=== PATIENT | female | born 1985 | race American Indian/Alaskan Native ===

== ENCOUNTER 2020-02-19 14:55 | Observation (INO) | payer MEDICAID ==
[2020-02-19] MEDS ORDERED: NITROGLYCERIN 0.4 MG TAB SUBL SL ONE (15:06)
[2020-02-19] MEDS ORDERED: MORPHINE 4 MG/1 ML INJ IV ONE (15:08)
[2020-02-19 15:54] LABS: Basophils % (Auto) 0.4 % (0.0-1.8); Eosinophils % (Auto) 0.3 % (0.0-4.3); Hematocrit 28.8 % (30.3-42.9); Hemoglobin 9.5 gm/dl (10.1-14.3); Lymphocytes # (Auto) 1.3 K/mm3 (1.2-5.4); Lymphocytes % (Auto) 14.4 % (13.4-35.0); Mean Corpuscular HGB Conc 33 % (30-34); Mean Corpuscular Volume 85 fl (79-97); Monocytes # (Auto) 0.5 K/mm3 (0.0-0.8); Monocytes % (Auto) 5.1 % (0.0-7.3); Platelet Count 429 K/mm3 (140-440); Red Cell Distribution Width 18.2 % (13.2-15.2)
[2020-02-19] MEDS ORDERED: NITROGLYCERIN 2% OINT 1 GM TP ONE (15:54)
[2020-02-19] MEDS ORDERED: fentaNYL 100 MCG/2 ML INJ IV ONE (15:55)
[2020-02-19 16:00] LABS: Blood Urea Nitrogen 13 mg/dL (7-17); Calcium 8.9 mg/dL (8.4-10.2); Hemolysis Index 28
[2020-02-19 16:04] LABS: BUN/Creatinine Ratio 19
[2020-02-19 16:14] LABS: Partial Thromboplastin Time 32.6 Sec. (24.2-36.6)
[2020-02-19] MEDS ORDERED: FUROSEMIDE 40 MG/4 ML INJ IV ONE (16:33)
[2020-02-19] MEDS ORDERED: HEPARIN 10,000 UNITS/10 ML VIAL IV ONE (16:33)
--- NOTE | 2020-02-19 16:33 | XRay Report ---
CHEST 1 VIEW 02/19/2020 4:05 PM INDICATION / CLINICAL INFORMATION: chest pain. COMPARISON: None available. FINDINGS: SUPPORT DEVICES: None. HEART / MEDIASTINUM: Moderate cardiomegaly status post previous median sternotomy. LUNGS / PLEURA: Increased interstitial markings bilaterally with more localized consolidation lateral to the right hilum. No pneumothorax. ADDITIONAL FINDINGS: No significant additional findings. IMPRESSION: 1. Moderate cardiomegaly. 2. Suspect atypical pneumonia. Signer Name: Efrem Petty MD Signed: 02/19/2020 4:29 PM Workstation Name: [id number]
[2020-02-19 16:36] LABS: HDL Cholesterol 45 mg/dL (40-59); LDL Cholesterol,Direct 70 mg/dL (50-130)
--- NOTE | 2020-02-19 16:39 | Emergency Department Report ---
ED Chest Pain HPI - General Chief Complaint: Chest Pain Stated Complaint: CHEST PAIN Time Seen by Provider: 02/19/20 15:03 Source: EMS Mode of arrival: Ambulatory Limitations: No Limitations - History of Present Illness Initial Comments: Patient is a 34-year-old F [place] female with a past medical history of coronary artery disease and lupus and congestive heart failure who is presenting with chest pain since earlier this morning. Patient states she was watching TV when this began. States she does have some shortness of breath. Chest pain is been constant throughout the day. Patient has a history of two-vessel CABG she has had a heart attack in the past secondary to her lupus. She denies fevers chills cough cold or congestion. Severity scale (0 -10): 7 Heart Score - HEART Score History: Moderately suspicious EKG: Non-specific Age: < 45 Risk factors: > 3 risk factors or hx of atherosclerotic disease Troponin: > 3x normal limit HEART Score: 6 ED Review of Systems ROS: Stated complaint: CHEST PAIN Other details as noted in HPI Comment: All other systems reviewed and negative ED Past Medical Hx - Past Medical History Previous Medical History?: Yes Hx Hypertension: Yes Hx Heart Attack/AMI: Yes Hx Congestive Heart Failure: Yes Additional medical history: lupus - Surgical History Past Surgical History?: Yes Additional Surgical History: bypass , stints - Social History Smoking Status: Never Smoker Substance Use Type: None ED Physical Exam - General Limitations: No Limitations General appearance: alert, in no apparent distress - Head Head exam: Present: atraumatic, normocephalic - Eye Eye exam: Present: normal appearance - ENT ENT exam: Present: mucous membranes moist - Neck Neck exam: Present: normal inspection - Respiratory Respiratory exam: Present: rales (slight in bilateral bases). Absent: normal lung sounds bilaterally, respiratory distress, wheezes, rhonchi - Cardiovascular Cardiovascular Exam: Present: normal rhythm, tachycardia, normal heart sounds. Absent: systolic murmur, diastolic murmur, rubs, gallop - GI/Abdominal GI/Abdominal exam: Present: soft, normal bowel sounds. Absent: distended, tenderness, guarding, rebound - Extremities Exam Extremities exam: Present: normal inspection - Back Exam Back exam: Present: normal inspection - Neurological Exam Neurological exam: Present: alert, oriented X3 - Psychiatric Psychiatric exam: Present: normal affect, normal mood - Skin Skin exam: Present: warm, dry, intact, normal color. Absent: rash ED Course Vital Signs 02/19/20 02/19/20 02/19/20 15:26 15:51 15:54 Temperature 98.7 F Pulse Rate 101 H 100 H Respiratory 18 18 18 Rate Blood Pressure 133/99 133/99 Blood Pressure 133/99 [Right] O2 Sat by Pulse 100 100 Oximetry 02/19/20 16:24 Temperature Pulse Rate 89 Respiratory 18 Rate Blood Pressure 136/82 Blood Pressure [Right] O2 Sat by Pulse Oximetry RYDER score - Ryder Score Age > 65: (0) No Aspirin use within the Past 7 Days: (1) Yes 3 or more CAD Risk Factors: (1) Yes 2 or more Angina events in past 24 hrs: (1) Yes Known CAD with more than 50% Stenosis: (0) No Elevated Cardiac Markers: (1) Yes ST Deviation Greater than 0.5mm: (0) No RYDER Score: 4 ED Medical Decision Making - Lab Data Result diagrams: 02/19/20 15:25 02/19/20 15:25 Lab Results 02/19/20 02/19/20 02/19/20 Range/Units 15:25 15:25 15:25 WBC 9.0 (4.5-11.0) K/mm3 RBC 3.40 L (3.65-5.03) M/mm3 Hgb 9.5 L (10.1-14.3) gm/dl Hct 28.8 L (30.3-42.9) % MCV 85 (79-97) fl MCH 28 (28-32) pg MCHC 33 (30-34) % RDW 18.2 H (13.2-15.2) % Plt Count 429 (140-440) K/mm3 Lymph % (Auto) 14.4 (13.4-35.0) % Hendry % (Auto) 5.1 (0.0-7.3) % Eos % (Auto) 0.3 (0.0-4.3) % Baso % (Auto) 0.4 (0.0-1.8) % Lymph # (Auto) 1.3 (1.2-5.4) K/mm3 Hendry # (Auto) 0.5 (0.0-0.8) K/mm3 Eos # (Auto) 0.0 (0.0-0.4) K/mm3 Baso # (Auto) 0.0 (0.0-0.1) K/mm3 Seg Neutrophils % 79.8 H (40.0-70.0) % Seg Neutrophils # 7.2 (1.8-7.7) K/mm3 APTT 32.6 (24.2-36.6) Sec. D-Dimer 255.62 H (0-234) ng/mlDDU Sodium 137 (137-145) mmol/L Potassium 4.2 (3.6-5.0) mmol/L Chloride 104.5 (98-107) mmol/L Carbon Dioxide 18 L (22-30) mmol/L Anion Gap 19 mmol/L BUN 13 (7-17) mg/dL Creatinine 0.7 (0.6-1.2) mg/dL Estimated GFR > 60 ml/min BUN/Creatinine Ratio 19 % Glucose 84 (65-100) mg/dL Calcium 8.9 (8.4-10.2) mg/dL Troponin T 0.329 H* (0.00-0.029) ng/mL Triglycerides 80 (2-149) mg/dL Cholesterol 126 (50-199) mg/dL LDL Cholesterol Direct 70 (50-130) mg/dL HDL Cholesterol 45 (40-59) mg/dL Cholesterol/HDL Ratio 2.80 % HCG, Qual (Negative) 02/19/20 Range/Units 15:25 WBC (4.5-11.0) K/mm3 RBC (3.65-5.03) M/mm3 Hgb (10.1-14.3) gm/dl Hct (30.3-42.9) % MCV (79-97) fl MCH (28-32) pg MCHC (30-34) % RDW (13.2-15.2) % Plt Count (140-440) K/mm3 Lymph % (Auto) (13.4-35.0) % Hendry % (Auto) (0.0-7.3) % Eos % (Auto) (0.0-4.3) % Baso % (Auto) (0.0-1.8) % Lymph # (Auto) (1.2-5.4) K/mm3 Hendry # (Auto) (0.0-0.8) K/mm3 Eos # (Auto) (0.0-0.4) K/mm3 Baso # (Auto) (0.0-0.1) K/mm3 Seg Neutrophils % (40.0-70.0) % Seg Neutrophils # (1.8-7.7) K/mm3 APTT (24.2-36.6) Sec. D-Dimer (0-234) ng/mlDDU Sodium (137-145) mmol/L Potassium (3.6-5.0) mmol/L Chloride (98-107) mmol/L Carbon Dioxide (22-30) mmol/L Anion Gap mmol/L BUN (7-17) mg/dL Creatinine (0.6-1.2) mg/dL Estimated GFR ml/min BUN/Creatinine Ratio % Glucose (65-100) mg/dL Calcium (8.4-10.2) mg/dL Troponin T (0.00-0.029) ng/mL Triglycerides (2-149) mg/dL Cholesterol (50-199) mg/dL LDL Cholesterol Direct (50-130) mg/dL HDL Cholesterol (40-59) mg/dL Cholesterol/HDL Ratio % HCG, Qual Negative (Negative) - EKG Data -: EKG Interpreted by Nv - EKG Data 02/19/20 16:39 EKG shows sinus rhythm with a rate of 98. Strat[place] is normal. Intervals are normal. Does appear to be some [address] depressions in V5 and V6. T wave inversions laterally. No ST segment elevation. - Radiology Data Chest x-ray shows cardiomegaly with pulmonary vascular congestion and pulmonary edema - Medical Decision Making Patient is a 34-year-old F [place] female with lupus and coronary disease who is presenting with chest pain. Troponin was elevated. Does appear as though she has pulmonary edema on chest x-ray. Patient started on low intensity heparin drip. Patient pain was controlled after receiving a dose of fentanyl which she says normally helps with her pain. Only minor relief with nitroglycerin. Patient be given Lasix for diuresis and she will be admitted to the hospitalist service with a cardiology consult. Critical Care Time: Yes (30) Critical care attestation.: If time is entered above; I have spent that time in minutes in the direct care of this critically ill patient, excluding procedure time. ED Disposition Clinical Impression: NSTEMI (non-ST elevated myocardial infarction), Acute CHF Disposition: OP ADMIT IP TO THIS HOSP Is pt being admited?: Yes Does the pt Need Aspirin: No Condition: Serious Time of Disposition: 16:44
[2020-02-19] MEDS ORDERED: HEPARIN/ 0.45% NACL DRIP 25,000 UNIT/500 ML BAG IV SCH (17:00)
[2020-02-19 17:15] LABS: Blood Urea Nitrogen 13 mg/dL (7-17); Calcium 8.7 mg/dL (8.4-10.2); Hemolysis Index 3
[2020-02-19 17:19] LABS: BUN/Creatinine Ratio 19
[2020-02-19 18:00] VITALS: BP 123/65
[2020-02-19] MEDS ORDERED: HEPARIN/ 0.45% NACL DRIP 25,000 UNIT/500 ML BAG ONE (20:19)
[2020-02-19] MEDS ORDERED: HYDROmorphone 1 MG/1 ML INJ IV PRN (20:32)
[2020-02-19] MEDS ORDERED: HYDROmorphone 1 MG/1 ML INJ ONE (20:34)
[2020-02-19 21:16] LABS: Amphetamine Screen,Urine Negative; Benzodiazepines Screen,Urine Negative; Cannabinoid Screen,Urine Negative; Cocaine Screen,Urine Negative; Methadone Screen,Urine Negative; Opiate Screen,Urine Negative
== END 2020-02-19 22:00 | disposition left against medical advice (07) ==
LOC: ED 14:55 → 4A 16:44
PROVIDERS: ADMIT Internal Medicine; ATTEND Internal Medicine
DX: I21.4 Non-ST elevation (NSTEMI) myocardial infarction (principal); I11.0 Hypertensive heart disease with heart failure; I50.9 Heart failure, unspecified; I25.10 Atherosclerotic heart disease of native coronary artery without angina pectoris; M32.9 Systemic lupus erythematosus, unspecified; Z95.1 Presence of aortocoronary bypass graft; Z98.890 Other specified postprocedural states; Z79.899 Other long term (current) drug therapy
CPT/HCPCS: 36415; 71045; 80048; 80061; 80307; 83880; 84484; 84703; 85025; 85379; 85730; 93005; 96365; 96366; 96375; 96376; 99291; G0378; J1170; J1644; J1940; J2270; J3010

== ENCOUNTER 2020-09-27 22:18 | Emergency (ER) | payer MEDICAID | END 2020-09-28 02:38 | disposition left against medical advice (07) | LOC: ED 22:18 | DX: R06.00 Dyspnea, unspecified (principal); Z53.21 Procedure and treatment not carried out due to patient leaving prior to being seen by health care provider ==

== ENCOUNTER 2020-10-11 13:03 | Inpatient (IN) | payer MEDICAID ==
--- NOTE | 2020-10-11 13:23 | Emergency Department Report ---
ED Chest Pain HPI - General Chief Complaint: Chest Pain Stated Complaint: CP PUI?: No Time Seen by Provider: 10/11/20 13:21 Source: patient, RN notes reviewed, old records reviewed Mode of arrival: Stretcher Limitations: Physical Limitation - History of Present Illness Initial Comments: The patient is a 35-year-old female. She is not known to myself previously. She has a history of lupus, presumed NSTEMI and coronary artery disease. She presents to the ER today with a complaint of chest pain. The chest pain is left-sided. She also endorses nausea, and shortness of breath. She reports that she was taking care of at [facility] recently, within the past month, had a cardiac catheterization. She is not sure why she had this catheterization. She believes that she had a stent deployed. She is not sure if it is a bare-metal stent, or drug-eluting stent. She takes aspirin and Plavix, and reports compliance with his medications. She is brought to the hospital today by emergency medical services. She has a complaint of chest pain. Prehospital EKG not consistent with STEMI. EMS gave aspirin in the field. Patient immediately brought back to room 3. She is placed on a cardiac cath lab technologist, and we have repeated twelve-lead EKG. At 13: 27 and is suspicious for acute inferior wall STEMI. Code STEMI called overhead at 7 AM, EKG completed, 13: 30 p.m. The EKG is transmitted simultaneously to our ship unloader, Dr. Vanegas. He agrees to take the patient to the cardiac catheterization lab. We are both in agreement to this EKG is suspicious for an acute cardiac injury [facility] physician, Dr. Villalta to admit patient to the medical service. Critical care physician, Dr. Rice, will place the patient in the critical care unit, depending on angiographic findings. The aforementioned ship unloader recommended heparin. Patient given aspirin by EMS. Hold nitroglycerin given concern for inferior wall injury pattern. Defer to inpatient team to follow-up on laboratory studies and x-ray results. Complaint: chest pain -: Sudden Pain Location: left chest Pain Radiation: back Severity: moderate Quality: aching Consistency: constant Improves With: nothing Worsens With: nothing Context: recent immobilization re: nausea, vomting, dyspnea Other Symptoms: denies: fever Treatments Prior to Arrival: aspirin Aspirin use within the Past 7 Days: (1) Yes - Related Data Allergies Allergy/AdvReac Type Severity Reaction Status Date / Time hydrocodone AdvReac Swelling Verified 10/11/20 13:26 shellfish derived AdvReac Swelling Verified 10/11/20 13:26 Heart Score - HEART Score History: Highly suspicious EKG: Significant ST-depression Age: < 45 Risk factors: > 3 risk factors or hx of atherosclerotic disease Troponin: 1-3x normal limit HEART Score: 7 - EKG Read Time Time EKG Completed: : EKG Read Time: 13:27 - Critical Actions Critical Actions: >7 pts:50-65% risk of adverse cardiac event. Early invasive measures ED Review of Systems ROS: Stated complaint: CP Other details as noted in HPI Constitutional: malaise. denies: fever Eyes: denies: eye discharge ENT: denies: epistaxis Respiratory: shortness of breath. denies: cough Cardiovascular: chest pain Gastrointestinal: nausea. denies: hematemesis, melena, hematochezia Neurological: weakness Psychiatric: anxiety ED Past Medical Hx - Past Medical History Hx Hypertension: Yes Hx Heart Attack/AMI: Yes Hx Congestive Heart Failure: Yes Additional medical history: lupus - Surgical History Additional Surgical History: bypass , stints - Social History Smoking Status: Never Smoker Substance Use Type: None ED Physical Exam - General Limitations: Physical Limitation General appearance: alert, anxious, in distress - Head Head exam: Present: atraumatic, normocephalic - Eye Eye exam: Present: normal appearance, EOMI. Absent: nystagmus - ENT ENT exam: Present: normal exam, normal orophraynx, mucous membranes moist, normal external ear exam - Neck Neck exam: Present: normal inspection, full ROM. Absent: tenderness, meningismus - Respiratory Respiratory exam: Present: normal lung sounds bilaterally. Absent: respiratory distress, wheezes, rales, rhonchi, stridor, decreased breath sounds - Cardiovascular Cardiovascular Exam: Present: normal rhythm, tachycardia, normal heart sounds. Absent: bradycardia, irregular rhythm, systolic murmur, diastolic murmur, rubs, gallop - GI/Abdominal GI/Abdominal exam: Present: soft. Absent: distended, tenderness, guarding, rebound, rigid, pulsatile mass - Extremities Exam Extremities exam: Present: normal inspection, full ROM, other (2+ pulses noted in the bilateral upper and lower extremities. There is no palpable cord. negative Homans sign. Muscular compartments are soft. The pelvis is stable.). Absent: pedal edema, calf tenderness - Back Exam Back exam: Present: normal inspection, full ROM. Absent: tenderness, CVA tenderness (R), CVA tenderness (L), paraspinal tenderness, vertebral tenderness - Neurological Exam Neurological exam: Present: alert, other (No facial droop. Tongue midline. Extraocular movements intact bilaterally. Facial sensation intact to light touch in V1, V2, V3 distribution bilaterally. 5 and a 5 strength in 4 extremities. Sensation intact to light touch in 4 extremities.). Absent: motor sensory deficit - Psychiatric Psychiatric exam: Present: anxious - Skin Skin exam: Present: warm, dry, intact, normal color. Absent: rash ED Course Vital Signs 10/11/20 10/11/20 10/11/20 13:19 13:21 13:30 Temperature 97.9 F Pulse Rate 114 H 113 H 112 H Respiratory 28 H 19 18 Rate Blood Pressure 116/85 120/87 O2 Sat by Pulse 100 93 100 Oximetry RYDER score - Ryder Score Age > 65: (0) No Aspirin use within the Past 7 Days: (1) Yes 3 or more CAD Risk Factors: (1) Yes 2 or more Angina events in past 24 hrs: (1) Yes Known CAD with more than 50% Stenosis: (0) No Elevated Cardiac Markers: (1) Yes ST Deviation Greater than 0.5mm: (0) No RYDER Score: 4 ED Medical Decision Making - Lab Data Result diagrams: 10/11/20 14:04 10/11/20 23:33 Vital Signs 10/11/20 13:19 Temperature 97.9 F Pulse Rate 114 H Respiratory 28 H Rate Blood Pressure 116/85 O2 Sat by Pulse 100 Oximetry Vital Signs 10/11/20 13:19 Temperature 97.9 F Pulse Rate 114 H Respiratory 28 H Rate Blood Pressure 116/85 O2 Sat by Pulse 100 Oximetry - EKG Data -: EKG Interpreted by Me - EKG Data Interpretation: acute FL 10/11/20 15:11 EKG today shows a sinus rhythm along with Q waves noted in the inferior leads, ST elevation noted in the inferior leads, rate approximately 115 bpm, with a normal axis, T wave inversions in the lateral leads, poor R wave progression. T wave abnormality aVL. Motion artifact. Not a STEMI. Nonspecific changes when compared to prior EKG. - Medical Decision Making Differential diagnosis, including the not limited to: Acute coronary syndrome, GERD, gastritis, hiatal hernia, pneumonia, pulmonary embolism Assessment and plan: 35-year-old female, with acute chest pain, concerning EKG morphology, reports having had a cardiac catheterization recently at another hospital (have requested her medical records, but they have not been sent over yet, do not have access to old cath report, or recent EKG), with concerning chest pain, known history of positive troponins, and concerning EKG morphology. Emergent activation of the cardiac catheterization lab has been initiated. Post catheterization recommendations are pending. Patient has been accepted to the medical service. We will defer to the inpatient team to follow-up cath report, laboratory studies, radiology studies. Please note that this patient required emergent disposition to the cardiac catheterization lab because of a concern for acute coronary syndrome/STEMI, a time sensitive condition, and therefore, could not remain in the emergency room pending x-ray acquisition, or results of laboratory studies. Critical Care Time: Yes Critical care time in (mins) excluding proc time.: 35 Critical care attestation.: If time is entered above; I have spent that time in minutes in the direct care of this critically ill patient, excluding procedure time. ED Disposition Clinical Impression: Acute coronary syndrome Disposition: 09 OP ADMIT IP TO THIS HOSP Is pt being admited?: Yes Does the pt Need Aspirin: No Condition: Critical
[2020-10-11] MEDS ORDERED: ONDANSETRON 4 MG/2 ML INJ ONE (13:29)
[2020-10-11] MEDS ORDERED: MORPHINE 4 MG/1 ML INJ ONE (13:29)
[2020-10-11] MEDS ORDERED: SODIUM CHLORIDE 0.9% 500 ML 500 ML IV ONE (13:33)
[2020-10-11] MEDS ORDERED: MORPHINE 4 MG/1 ML INJ IV ONE (13:33)
[2020-10-11] MEDS ORDERED: ONDANSETRON 4 MG/2 ML INJ IV ONE (13:33)
[2020-10-11] MEDS ORDERED: HEPARIN 10,000 UNITS/10 ML VIAL IV PRN (13:39)
[2020-10-11] MEDS ORDERED: HEPARIN 10,000 UNITS/10 ML VIAL IV ONE (13:39)
[2020-10-11] MEDS ORDERED: HEPARIN/NS 5000 UNIT/500ML 1,000 ML IR ONE (13:51)
[2020-10-11] MEDS ORDERED: VERAPAMIL 5 MG/2 ML INJ ONE (13:51)
[2020-10-11] MEDS ORDERED: NITROGLYCERIN SYRINGE 3 ML ONE (13:52)
[2020-10-11] MEDS ORDERED: SODIUM CHLORIDE 0.9% 1000 ML 1,000 ML ONE (13:54)
[2020-10-11] MEDS ORDERED: oxyCODONE /ACETAMINOPHEN 5-325MG TAB PO PRN (13:58)
[2020-10-11] MEDS ORDERED: ACETAMINOPHEN 325 MG TAB PO PRN (13:58)
[2020-10-11] MEDS ORDERED: HYDROmorphone 1 MG/1 ML INJ IV PRN (13:58)
[2020-10-11] MEDS: HEPARIN 10,000 UNITS/10 ML VIAL ONE ×4 (13:58→14:43)
--- NOTE | 2020-10-11 13:58 | History and Physical Report ---
History of Present Illness Chief complaint: My chest hurts History of present illness: 35 YO Female with SLE, ME, Diastolic CHF, PVD S/P Bypass and Stent Placement presents to ED for evaluation. Patient reports "my chest is hurting". Patient states that she has experienced pain in her chest over the past 1 day with persistently worsening symptoms over the same timeframe. Patient states that her pain is 10/10, constant, localized to the left chest, associated with nausea and shortness of breath. Of the aforementioned symptoms. The patient was seen and evaluated in the emergency department. All lab and imaging studies reviewed. Patient underwent EKG and was found to have EKG changes consistent with STEMI. A code STEMI was called. Cardiology team was alerted and the patient was taken urgently to the catheterization lab for surgical intervention. Patient denies fever, chills, palpitation, productive cough, skin rash, recent ill contacts, or known exposure to COVID-19. Prior evaluation 02/19/2020 dory delarosa. All medication listed at time of admission has been reconciled. Patient admitted to ICU for further care and postoperative evaluation. Cardiology team consulted. Critical care team consulted. Past History Past Medical History: acute ME, heart failure, other (See HPI) Past Surgical History: CABG, Other (Stent placement) Social history: single Family history: hypertension Medications and Allergies Allergies Allergy/AdvReac Type Severity Reaction Status Date / Time hydrocodone AdvReac Swelling Verified 10/11/20 13:26 shellfish derived AdvReac Swelling Verified 10/11/20 13:26 Active Meds: Active Medications Heparin Sodium (Porcine) (Heparin 10,000 Units/10 Ml Vial) 5,600 unit 40 unit/kg (5600 unit) IV Q6H PRN PRN Reason: Anti-Xa Assay < 0.1 units/ml Sodium Chloride (Nacl 0.9% 500 Ml) 500 mls @ 999 mls/hr IV ONCE ONE Stop: 10/11/20 14:03 Heparin Sodium/Sodium Chloride (Heparin/ 0.45% Nacl-25,000 Unit/500 Ml) 25,000 unit in 500 mls @ 18 mls/hr IV TITRATE ANTHONY; Protocol Review of Systems Constitutional: no weight loss, no weight gain, no chills, no sweats Ears, nose, mouth and throat: no ear pain, no tinnitis, no decreased hearing, no nose pain Cardiovascular: chest pain, no orthopnea, no rapid/irregular heart beat, no edema, no lightheadedness Respiratory: no cough, no excessive sputum Gastrointestinal: no abdominal pain, no diarrhea Genitourinary Female: no pelvic pain, no flank pain, no dysuria, no urgency Rectal: no pain, no incontinence, no bleeding Musculoskeletal: no neck stiffness, no neck pain, no shooting arm pain, no arm numbness/tingling, no low back pain, no leg numbness/tingling Integumentary: no rash, no redness, no sores, no jaundice, no boils Neurological: no head injury, no paralysis, no parathesias, no tingling, no seizures, no syncope, no lack of coordination Psychiatric: no anxiety, no memory loss, no sleep disturbances, no hypersomnia, no suicidal ideation Endocrine: no cold intolerance, no heat intolerance, no excessive thirst, no polyuria, no nocturia, no flushing Hematologic/Lymphatic: no easy bruising, no easy bleeding, no lymphadenopathy, no lymphedema Allergic/Immunologic: no urticaria, no allergic rhinitis, no persistent infections, no anaphylaxis Exam - Constitutional Vitals: Temp Pulse Resp BP Pulse Ox 97.9 F 114 H 28 H 116/85 100 10/11/20 13:19 10/11/20 13:19 10/11/20 13:19 10/11/20 13:19 10/11/20 13:19 General appearance: Present: mild distress - EENT Eyes: Present: PERRL ENT: hearing intact, clear oral mucosa - Neck Neck: Present: supple, normal ROM - Respiratory Respiratory effort: normal Respiratory: bilateral: CTA - Cardiovascular Heart Sounds: Present: S1 & S2. Absent: rub, click - Extremities Extremities: pulses symmetrical, No edema Peripheral Pulses: within normal limits - Abdominal General gastrointestinal: Present: soft, non-tender, non-distended, normal bowel sounds Female genitourinary: Present: normal - Integumentary Integumentary: Present: clear, warm, dry - Musculoskeletal Musculoskeletal: gait normal, strength equal bilaterally - Psychiatric Psychiatric: appropriate mood/affect, intact judgment & insight - Neurologic Neurologic: CNII-XII intact, moves all extremities HEART Score - HEART Score EKG: Significant ST-depression Age: < 45 Risk factors: > 3 risk factors or hx of atherosclerotic disease Troponin: 1-3x normal limit - Critical Actions Critical Actions: >7 pts:50-65% risk of adverse cardiac event. Early invasive measures Results - Labs CBC & Chem 7: 10/11/20 14:04 10/11/20 14:04 Assessment and Plan - Patient Problems (1) STEMI (ST elevation myocardial infarction) Current Visit: Yes Status: Acute Plan to address problem: Cardiology team consulted. Patient admitted to ICU. Patient taken urgently to Respiratory Scientist, surgical intervention as per cardiology team. Anticoagulation as per cardiology team. Further care management as per cardiology team. The high probability of a clinically significant, sudden or life threatening deterioration of the [cardiac, renal, pulmonary] system(s) required my full and direct attention, intervention and personal management. The aggregate critical care time was [65 minutes]. This time is in addition to time spent performing reported procedures but includes the following: [x] Data Review and interpretation [x] Patient assessment and monitoring of vital signs [x] Documentation [x] Medication orders and management (2) Diastolic CHF Current Visit: Yes Status: Acute Qualifiers: Heart failure chronicity: acute on chronic Qualified Code(s): I50.33 - Acute on chronic diastolic (congestive) heart failure Plan to address problem: Strict I's/O, monitor urine output every shift, daily weight, afterload reduction, blood pressure control, cardiology team consulted. (3) Lupus Current Visit: Yes Status: Acute Plan to address problem: Continue medical management, supportive care, outpatient rheumatology follow-up. (4) Angina at rest Current Visit: Yes Status: Acute Plan to address problem: Cardiology team consulted, further care and intervention as per cardiology team. (5) DVT prophylaxis Current Visit: Yes Status: Acute Plan to address problem: SCDs bilateral lower extremities while in bed, anticoagulation as per cardiology team.
[2020-10-11] MEDS: LIDOCAINE (2%) 20 MG/1 ML VIAL 20 ML MDV INFILTRATI ONE ×2 (14:00→14:10)
[2020-10-11] MEDS ORDERED: HEPARIN/ 0.45% NACL DRIP 25,000 UNIT/500 ML BAG IV SCH (14:00)
[2020-10-11] MEDS: fentaNYL 100 MCG/2 ML INJ ONE ×2 (14:04→14:10)
[2020-10-11] MEDS: MIDAZOLAM 2 MG/2 ML INJ ONE ×2 (14:05→14:10)
[2020-10-11] MEDS ORDERED: diphenhydrAMINE 50 MG/ML VIAL ONE (14:07)
[2020-10-11] MEDS ORDERED: methylPREDNISolone Sod Succinate 125 MG/2 ML INJ ONE (14:08)
[2020-10-11 14:20] LABS: Basophils % (Auto) 0.3 % (0.0-1.8); Eosinophils % (Auto) 0.1 % (0.0-4.3); Hematocrit 22.1 % (30.3-42.9); Hemoglobin 6.9 gm/dl (10.1-14.3); Lymphocytes % (Auto) 5.8 % (13.4-35.0); Mean Corpuscular HGB Conc 31 % (30-34); Mean Corpuscular Volume 84 fl (79-97); Monocytes # (Auto) 0.6 K/mm3 (0.0-0.8); Monocytes % (Auto) 3.8 % (0.0-7.3); Platelet Count 466 K/mm3 (140-440); Red Blood Count 2.64 M/mm3 (3.65-5.03); Red Cell Distribution Width 17.8 % (13.2-15.2)
[2020-10-11 14:30] LABS: INR 1.21 (0.87-1.13)
[2020-10-11] MEDS ORDERED: NITROGLYCERIN SYRINGE 6 ML ONE (14:31)
[2020-10-11] MEDS ORDERED: TIROFIBAN/NS 12,500 MCG/250 ML BAG IV ONE (14:33)
[2020-10-11 14:38] LABS: Alanine Aminotransferase 10 units/L (7-56); Albumin 3.2 g/dL (3.9-5); BUN/Creatinine Ratio 18; Blood Urea Nitrogen 16 mg/dL (7-17); Calcium 8.3 mg/dL (8.4-10.2); Hemolysis Index 1
[2020-10-11] MEDS: TICAGRELOR 90 MG TAB ONE ×2 (14:53→14:55)
[2020-10-11] MEDS: ALUM-MAG HYDROXIDE-SIMETHICONE 200-200-20MG/5ML ORAL LIQD 30 ML ONE ×2 (14:53→14:55)
[2020-10-11] MEDS ORDERED: HYDROcodone/ACETAMINOPHEN 5-325 MG TAB PO PRN (15:10)
--- NOTE | 2020-10-11 15:27 | Consultation ---
History of Present Illness Consult date: 10/11/20 Consult reason: chest pain History of present illness: 35-year-old woman who presented to the emergency room with chest pain. ECG showed inferior ST elevation, suggestive of an acute STEMI. STEMI protocol was activated. On further evaluation, the patient states that she had two-vessel coronary bypass at [facility] 3 years ago. More recently, 3 weeks ago she states that she underwent cardiac catheterization and an interventional procedure. The details of the bypass and the recent invasive procedure were not readily available, and due to time constraints of STEMI protocol, we decided to continue to emergency cardiac catheterization pending full information regarding her previous cardiac interventions. The patient states that she has been fully compliant with aspirin and Plavix therapy. At cardiac catheterization, we did not find a lesion corresponding to the acute inferior pattern seen on the EKG. The campo right coronary artery was occluded, but the saphenous vein graft to the distal right was patent with only a 50% stenosis in the distal third of the graft. The campo circumflex artery was also occluded, but this appeared to be a chronic total occlusion, a stent was visible in small terminal obtuse marginal, which was felt by faint collaterals from the right coronary system. The left main was free of significant disease, as well as the proximal LAD. The mid LAD was notable for a greater than 99% stenosis at the origin of a large bifurcating mid diagonal branch. As a result of this stenosis, there was only RYDER II antegrade flow into the diagonal branch and its large subbranch. This diagonal branch did not have a functional bypass. An additional saphenous vein graft to the left coronary system was occluded at its origin. With regards to the LAD, it was of small caliber beyond the mid diagonal branch, contained a long segment of diffuse severe disease, chronically totally occluded with diffuse atrophy, with faint collateralization of the apical segments from the right coronary artery. There was a severe dilated cardiomyopathy with ejection fraction less than 15 to 20%, complete akinesis of the mid to distal anterior wall and apex, the perfusion territory of the LAD. After review, we felt the patient's current angina was likely due to ischemia within the large bifurcating mid diagonal branch which subtended most of the lateral wall of the ventricle. Coronary intervention was performed successfully with implantation of a 3.0 mm drug-eluting stent, directed from the LAD into the large diagonal branch, and restoring RYDER-3 flow. Patient's chest pain was relieved following the interventional procedure. She is admitted for post UT intervention, on Aggrastat for 18 hours, and long- term management with baby aspirin and Brilinta for dual oral antiplatelets. I have also recommended aggressive risk factor modification including immediate smoking cessation and 80 mg of atorvastatin daily. Past History Past Medical History: CAD, other (Tobacco abuse) Past Surgical History: CABG, PTCA Medications and Allergies Allergies Allergy/AdvReac Type Severity Reaction Status Date / Time hydrocodone AdvReac Swelling Verified 10/11/20 13:26 shellfish derived AdvReac Swelling Verified 10/11/20 13:26 Active Meds: Active Medications Acetaminophen (Acetaminophen 325 Mg Tab) 650 mg PO Q6H PRN PRN Reason: Pain MILD(1-3)/Fever >100.5/NOBLES Hydrocodone Bitart/Acetaminophen (Hydrocodone/Acetaminophen 5-325 Mg Tab) 1 each PO Q6H PRN PRN Reason: Pain, Moderate (4-6) Aspirin (Aspirin Ec 81 Mg Tab) 81 mg PO QDAY ANTHONY Atorvastatin Calcium (Atorvastatin 40 Mg Tab) 80 mg PO QHS ANTHONY Hydromorphone HCl (Hydromorphone 1 Mg/1 Ml Inj) 0.5 mg IV Q12H PRN PRN Reason: Pain , Severe (7-10) Sodium Chloride (Nacl 0.9% 1000 Ml) 1,000 mls @ 42 mls/hr IV DIRECT ANTHONY Stop: 10/12/20 03:14 Tirofiban/Sodium Chloride (Aggrastat Drip (12.5 Mg/250 Ml)) 12,500 mcg in 250 mls @ 0 mls/hr IV DIRECT ANTHONY; Protocol Stop: 10/12/20 09:59 Lisinopril (Lisinopril 5 Mg Tab) 2.5 mg PO QDAY ANTHONY Metoprolol Tartrate (Metoprolol Tartrate 25 Mg Tab) 25 mg PO Q8H ANTHONY Oxycodone/Acetaminophen (Oxycodone /Acetaminophen 5-325mg Tab) 1 tab PO Q12H PRN PRN Reason: Pain, Moderate (4-6) Pantoprazole Sodium (Pantoprazole 40 Mg Tab) 40 mg PO QDAC ANTHONY Sodium Chloride (Sodium Chloride 0.9% 10 Ml Flush Syringe) 10 ml IV BID ANTHONY Sodium Chloride (Sodium Chloride 0.9% 10 Ml Flush Syringe) 10 ml IV PRN PRN PRN Reason: LINE FLUSH Ticagrelor (Ticagrelor 90 Mg Tab) 90 mg PO BID ANTHONY Review of Systems Cardiovascular: chest pain, shortness of breath, no orthopnea, no palpitations, no rapid/irregular heart beat, no edema, no syncope, no lightheadedness Physical Examination Vital Signs Temp Pulse Resp BP Pulse Ox 97.9 F 114 H 28 H 116/85 100 10/11/20 13:19 10/11/20 13:19 10/11/20 13:19 10/11/20 13:19 10/11/20 13:19 General appearance: mild distress HEENT: Positive: PERRL Neck: Positive: neck supple Cardiac: Positive: Reg Rate and Rhythm Lungs: Positive: Decreased Breath Sounds Neuro: Positive: Grossly Intact Abdomen: Positive: Soft Female genitourinary: deferred Skin: Positive: Clear Extremities: Absent: edema Results 10/11/20 14:04 10/11/20 14:04 Cardiac Enzymes 10/11/20 Range/Units 14:04 AST 18 (5-40) units/L Coagulation 10/11/20 Range/Units 14:04 PT 15.8 H (12.2-14.9) Sec. INR 1.21 H (0.87-1.13) APTT 222.0 H* (24.2-36.6) Sec. CBC 10/11/20 Range/Units 14:04 WBC 16.6 H (4.5-11.0) K/mm3 RBC 2.64 L (3.65-5.03) M/mm3 Hgb 6.9 L (10.1-14.3) gm/dl Hct 22.1 L (30.3-42.9) % Plt Count 466 H (140-440) K/mm3 Lymph # (Auto) 1.0 L (1.2-5.4) K/mm3 [place] # (Auto) 0.6 (0.0-0.8) K/mm3 Eos # (Auto) 0.0 (0.0-0.4) K/mm3 Baso # (Auto) 0.0 (0.0-0.1) K/mm3 Comprehensive Metabolic Panel 10/11/20 Range/Units 14:04 Sodium 138 (137-145) mmol/L Potassium 4.1 (3.6-5.0) mmol/L Chloride 109.8 H (98-107) mmol/L Carbon Dioxide 13 L (22-30) mmol/L BUN 16 (7-17) mg/dL Creatinine 0.9 (0.6-1.2) mg/dL Glucose 175 H (65-100) mg/dL Calcium 8.3 L (8.4-10.2) mg/dL AST 18 (5-40) units/L ALT 10 (7-56) units/L Alkaline Phosphatase 93 (35-129) units/L Albumin 3.2 L (3.9-5) g/dL EKG interpretations - Telemetry EKG Rhythm: Sinus Rhythm (With acute inferior ST elevation) Assessment and Plan - Patient Problems (1) Acute coronary syndrome Current Visit: Yes Status: Acute Plan to address problem: Patient presented with chest pain and acute inferior ST elevation on the EKG, cardiac catheterization findings as described above, followed by coronary intervention to the mid LAD intended to perfuse a large bifurcating mid diagonal branch. Procedure well-tolerated, patient admitted to the CCU for post UT supportive care.
[2020-10-11] MEDS ORDERED: HEPARIN 10,000 UNITS/10 ML VIAL ONE (15:57)
[2020-10-11] MEDS ORDERED: METOPROLOL TARTRATE 25 MG TAB PO SCH (16:00)
[2020-10-11] MEDS ORDERED: TIROFIBAN/NS 12,500 MCG/250 ML BAG IV SCH (16:00)
[2020-10-11] MEDS ORDERED: PANTOPRAZOLE 40 MG TAB PO SCH (16:00)
--- NOTE | 2020-10-11 16:00 | Cardiac Catherization Report ---
DATE OF SERVICE: 10/11/2020 CARDIAC CATHETERIZATION AND CORONARY ANGIOPLASTY REPORT The patient is a 35-year-old woman who presented to the Emergency Room this afternoon with chest pain. There was marked chest pain with shortness of breath. ECG showed ST elevation in the inferior wall, suggestive of an acute STEMI. STEMI protocol was activated. On further questioning of the patient, she had been hospitalized 3 weeks ago at [facility] in [facility], states that she underwent a stent procedure at the time and has been fully compliant with her dual oral antiplatelet therapy with Plavix. She also incidentally has had 2-vessel coronary bypass done 3 years ago. We made attempts to obtain the bypass information as well as the information from her recent angiography and interventional procedure, but this could not be obtained in an expeditious manner. Given the time constraints of the STEMI protocol, the patient was then taken emergently to the cardiac catheterization laboratory. PROCEDURES PERFORMED: 1. Left heart catheterization. 2. Selective left and right coronary angiography. 3. Left ventricular angiography. 4. Angiography of the left internal mammary artery. 5. Angiography of the saphenous vein grafts. 6. Coronary angioplasty and stenting of the mid LAD, to perfuse a large bifurcating mid diagonal branch. 7. Sedation time start 1405, end 1440. DESCRIPTION OF PROCEDURE: The patient was prepped and draped in a sterile fashion after informed consent. Planned access in the right radial artery was successful, but retrograde catheterization could not be performed due to the small vessel and difficulty in advancing a wire and retrograde through the small caliber radial artery. We then turned our attention to the left femoral artery. We cannulated the left femoral artery, placed a 6 Kiswahili sheath and advanced a #3.5 left Anand catheter, which was used to perform left coronary angiography. This was exchanged for a #4 right Anand, which was used for right coronary angiography and saphenous vein graft angiography. The right Anand was also used for left ventricular angiography. We then exchanged for a left internal mammary artery catheter to perform the left internal mammary artery catheterization. The angiograms were then reviewed. CORONARY ANGIOGRAPHY: The left ventricular end diastolic pressure was 22, following coronary angiography. Ascending aortic pressure was 96/60. There was no significant pressure gradient on pullback across the aortic valve. Left ventricular angiography revealed a severely dilated left ventricle, with severe left ventricular systolic dysfunction with ejection fraction less than 15-20%. CORONARY ANGIOGRAPHY: The left main coronary artery was free of significant disease. The left anterior descending artery contained mild irregularities in its proximal segment, this comminuted in a greater than 99% stenosis of its mid segment, adjacent to the origin of a large bifurcating diagonal branch. The diagonal branch and its sub-branch appear to perfuse most of the lateral wall of the left ventricle. Following the diagonal branch, the LAD appeared of very small caliber, thready, diffusely diseased all the way down to the apex. There was faint collateralization of the apical segments of the LAD from the right coronary system. The left internal mammary artery graft angiography showed the left internal mammary artery graft to remain in situ, was not used for bypass, and the LAD did not appear to have been previously bypassed. The circumflex artery was similarly, occluded in its proximal to mid segment. We found a stent that was visible in the distal vessel within a small terminal obtuse marginal. This terminal obtuse marginal was also faintly perfused by collaterals from the right coronary system. The right coronary artery contained an 80-90% ostial stenosis, followed by its complete occlusion in the mid segment. The saphenous vein graft to the distal right coronary artery was patent with good anastomosis and good distal runoff into a large distal right coronary system. There was a 50% stenosis of the distal third of the bypass graft. Another bypass graft intended to the circumflex or LAD system was occluded at its origin. In the absence of bypass graft anatomy, we are not completely certain of the target at this time. CORONARY ANGIOPLASTY: After review of the angiograms, we find that the critical occlusion of the mid LAD feeding the large bifurcating diagonal branch will be the likely source of the patient's angina. This diagonal branch does not have a current bypass and there was demonstration of only RYDER 2 flow through that system. We elected to perform coronary stenting of the LAD intended to perfuse this diagonal branch. As noted, beyond the diagonal branch, the rest of the LAD was a long segment of chronic total occlusion, severely, diffusely diseased, thready and atrophic. We then selected of a #3.5 XB guiding catheter to the left coronary ostium. A 0.014 inch Airplane Mechanic 50 guidewire was then introduced into the LAD, into the diagonal branch. We then predilated the lesion using a 3.0 mm balloon catheter. A 3.0 x 18 mm drug-eluting stent was then implanted, from the mid LAD into the diagonal branch and inflated to optimal pressures. Following stenting, there was an excellent angiographic result, latter-day of RYDER 3 flow through the diagonal branch. The patient's chest pain resolved. The catheters and the wires were then removed, sheath removed. Hemostasis achieved using an Angio-Seal device at the left femoral artery. The patient was returned to the postprocedure unit in stable condition. There were no complications. CONCLUSION: 1. Chest pain with inferior ST elevation, suggestive of an acute inferior ST-segment elevation myocardial infarction. 2. Angiography did not reveal any obvious culprit lesion for inferior ST elevation. 3. Severe 3-vessel coronary artery disease. 4. Patent saphenous vein graft to the RCA. 5. Occluded saphenous vein graft x1. 6. The LAD is of very small caliber in its mid to distal segment, chronically diffusely diseased, atrophic and thready. Not suitable for percutaneous revascularization. 7. Left internal mammary artery graft found in situ, not used for bypass. 8. Greater than 99% stenosis of the mid LAD at the origin of a large bifurcating diagonal branch, was felt to be the lesion causing the patient's symptoms at this time. 9. Successful ad-hoc angioplasty and stenting with excellent angiographic result following intervention to the mid LAD intended to perfuse the large bifurcating diagonal branch. 10. Severe dilated cardiomyopathy, severe left ventricular systolic dysfunction, ejection fraction less than 15-20%. TID: [id number] RECEIPT: [id number] CA/SAT
[2020-10-11] MEDS ORDERED: SODIUM CHLORIDE 0.9% 1000 ML 1,000 ML IV SCH (16:15)
--- NOTE | 2020-10-11 18:56 | XRay Report ---
CHEST 1 VIEW 10/11/2020 6:28 PM INDICATION / CLINICAL INFORMATION: Chest Pain. Smoker. Hypertension. Lupus. COMPARISON: 02/19/20 FINDINGS: SUPPORT DEVICES: None. HEART / MEDIASTINUM: Heart is enlarged but stable. Median sternotomy wires are unchanged. LUNGS / PLEURA: Mild bilateral perihilar interstitial lung markings are unchanged. No significant ple ural effusion. No pneumothorax. ADDITIONAL FINDINGS: No significant additional findings. IMPRESSION: 1. Bilateral perihilar opacities appear similar to prior study. 2. Stable cardiomegaly. Signer Name: Zach Lim MD Signed: 10/11/2020 6:51 PM Workstation Name: [id number]
[2020-10-11] MEDS ORDERED: MORPHINE 2 MG/1 ML INJ IV PRN (19:37)
[2020-10-11] MEDS ORDERED: HYDROmorphone 1 MG/1 ML INJ IV ONE (20:15)
[2020-10-11] MEDS ORDERED: NITROGLYCERIN 0.1 MG PATCH 24HR TD ONE ×2 (21:03→23:20)
[2020-10-11] MEDS ORDERED: LORazepam 2 MG/ML VIAL IV ONE (21:10)
[2020-10-11] MEDS ORDERED: TICAGRELOR 90 MG TAB PO SCH (22:00)
[2020-10-11] MEDS ORDERED: NITROGLYCERIN 0.2 MG PATCH 24HR TD SCH (23:00)
--- NOTE | 2020-10-11 23:27 | XRay Report ---
XR chest 1V ap INDICATION / CLINICAL INFORMATION: . COMPARISON: 10/11/2020 FINDINGS: SUPPORT DEVICES: None. HEART /PULMONARY VASCULATURE: Unchanged LUNGS / PLEURA: Perihilar interstitial opacities are unchanged. No new or increasing airspace consoli dation. There is no pleural effusion. No pneumothorax. ADDITIONAL FINDINGS: No significant additional findings. IMPRESSION: Stable findings are CHF/volume overload. Signer Name: Rambo Cam MD Signed: 10/11/2020 11:23 PM Workstation Name: [id number]
[2020-10-11] MEDS ORDERED: SODIUM CHLORIDE 0.9% 1000 ML 1,000 ML IV ONE (23:30)
[2020-10-12] MEDS ORDERED: LORazepam 2 MG/ML VIAL IV PRN
[2020-10-12 00:08] LABS: Albumin 3.2 g/dL (3.9-5); Calcium 8.9 mg/dL (8.4-10.2)
[2020-10-12] MEDS ORDERED: NICOTINE 21 MG/24 HR PATCH TD SCH (00:15)
[2020-10-12] MEDS ORDERED: SODIUM BICARB 8.4% 50 MEQ/50 ML SYRINGE IV ONE ×5 (00:23→02:05)
[2020-10-12] MEDS ORDERED: HALOPERIDOL LACTATE 5 MG/1 ML INJ IM PRN (00:31)
[2020-10-12] MEDS ORDERED: DEXTROSE 50% IN WATER (25GM) 50 ML VIAL IV ONE (00:55)
[2020-10-12] MEDS ORDERED: EPINEPHrine 30 MG/30 ML INJ IV ONE (00:55)
[2020-10-12] MEDS ORDERED: EPINEPHrine 1 MG/10 ML SYRINGE ONE ×2 (00:55→02:05)
[2020-10-12] MEDS ORDERED: DOPamine/D5W 800 MG/250 ML DRIP IV ONE (00:55)
[2020-10-12] MEDS ORDERED: ATROPINE 0.1% (1 MG/10 ML) CARDIAC SYRINGE ONE ×2 (00:55→02:05)
[2020-10-12] MEDS ORDERED: SODIUM BICARBONATE 150 MEQ in DEXTROSE 5% IN WATER 1,000 ML IV SCH (01:00)
[2020-10-12 01:06] LABS: Chol/HDL Ratio 2.69 %; HDL Cholesterol 33 mg/dL (40-59); LDL Cholesterol,Direct 49 mg/dL (50-130)
[2020-10-12] MEDS ORDERED: DEXTROSE 50% IN WATER (25GM) 50 ML SYRINGE IV ONE ×4 (01:07→02:05)
--- NOTE | 2020-10-12 01:14 | Event Note ---
[facility] intubation note Called to the ICU for CODE BLUE in progress. Upon arrival patient was being bagged by respiratory therapy via BVM and receiving chest compressions from nursing. Patient was intubated by myself using a glide scope. The patient was left in the care of the hospitalist Dr. Ba who was at bedside running ACLS protocols Intubation note Consent was unobtainable due to patient condition Preoxygenation with 100% oxygen Patient was sedated with Versed 5 mg IV Patient was paralyzed with succinylcholine 100 mg IV A size 7.5 mm ET tube was inserted orally on first attempt There was symmetric chest rise and bilateral breath sounds post intubation A CO2 indicator was used for confirmation and resulted in positive CO2 return ET tube was taped at 21 cm at the lips The patient tolerated the procedure well There were no complications
--- NOTE | 2020-10-12 01:46 | Event Note ---
[facility] central line note Requested by hospitalist Dr. Ba to place central line secondary to tenuous venous access Consent unobtainable secondary to the emergent condition Location: Left femoral The skin was prepped and draped in a sterile fashion. The skin and subcutaneous tissue was anesthetized with 1% lidocaine The needle was inserted serosanguineous/very thin translucent blood was aspirated after first attempt Using the Seldinger technique a guidewire was inserted. A small incision was made and a dilator was placed. Blood return was good from all 3 ports. All ports were flushed with saline. The central venous line was secured in place with adhesive Sterile OpSite dressing was applied The patient tolerated the procedure well There were no complications Patient left in the care of Dr. Ba at bedside
[2020-10-12] MEDS ORDERED: ATROPINE 0.4 MG/1 ML INJ ONE (02:05)
--- NOTE | 2020-10-12 02:21 | Death Note ---
Note Date of : 10/12/20 Time of : 02:06 Time Pronounced: 02:10 - Preliminary Cause of (problem) (1) Acute coronary syndrome Preliminary cause of (2) STEMI (ST elevation myocardial infarction) Preliminary cause of Patient was admitted for ST elevation [place] diastolic CHF and angina. Patient was agitated suddenly patient had stopped breathing and CODE BLUE was called. Patient was intubated by ER physician Dr. De La Rosa. CPR was given as per ACLS protocol. 15 epi, 7 atropine and 5 bicarb was given. Patient was hypoglycemic. Blood glucose was 54 patient was given two 3 unit of D50. Patient was anemic patient was given 2 unit of uncrossed match blood. CPR was given for over 1 hour but patient failed to regain ROSC. Patient lost pulse and BP. Patient mother stopped CPR and let the patient go naturally. Patient mother is power of commercial real estate attorney. Patient at 2:06 AM on 10/12/2020 due to cardiopulmonary arrest, NSTEMI, diastolic CHF lupus angina. Prognosis was poor. Patient family and mother at the bedside
[2020-10-12] MEDS ORDERED: LISINOPRIL 5 MG TAB PO SCH (10:00)
[2020-10-12] MEDS ORDERED: ASPIRIN EC 81 MG TAB PO SCH (10:00)
--- NOTE | 2020-10-12 10:53 | Electrocardiograph Report ---
[facility] Test Date: 2020-10-11 Test Time: 13:27:43 Pat Name: ELANA MOJICA Department: CCU Room: A252 1 Gender: F Carpet Jack: PARKER : 1985 Requested By: ALLISON ALDRIDGE Order Number: [id number] Reading MD: Adeel Garcia Measurements Intervals [place] Rate: 111 P: 262 GA: 149 QRS: 9 QRSD: 105 T: 239 QT: 374 QTc: 507 Interpretive Statements Ectopic atrial tachycardia, unifocal LVH with secondary repolarization abnormality ST elevation secondary to LVH No previous ECG available for comparison ST elevations in inferior leads,consider acute inferior injury. Electronically Signed On 10-12-2020 10:52:54 EDT by Adeel Garcia
[2020-10-13 06:46] VITALS: BP 138/72
--- NOTE | 2020-10-13 09:41 | Electrocardiograph Report ---
[facility] Test Date: 2020-10-11 Test Time: 19:36:02 Pat Name: ELANA MOJICA Department: Room: A252 1 Gender: F Banking Manager: MIUQEL : 1985 Requested By: KARAN ORTIZ Order Number: [id number] Reading MD: Adeel Garcia Measurements Intervals [place] Rate: 125 P: 77 AR: 156 QRS: 79 QRSD: 113 T: QT: 310 QTc: 447 Interpretive Statements Sinus tachycardia Probable left atrial enlargement Compared to ECG 10/11/2020 13:27:43,ST elevations in inferior leads no longer noted. Left ventricular hypertrophy no longer present Early repolarization no longer present ST (T wave) deviation no longer present Electronically Signed On 10-13-2020 9:40:48 EDT by Adeel Garcia
== END 2020-10-12 02:06 | DRG 246 ==
LOC: ED 13:03 → CC1 13:58
PROVIDERS: ADMIT Internal Medicine; ATTEND Internal Medicine
PROC: 4A023N7 Measurement of Cardiac Sampling and Pressure, Left Heart, Percutaneous Approach (ICD-10-PCS; principal; 2020-10-11)
PROC: 027034Z Dilation of Coronary Artery, One Artery with Drug-eluting Intraluminal Device, Percutaneous Approach (ICD-10-PCS; 2020-10-11)
PROC: B2111ZZ Fluoroscopy of Multiple Coronary Arteries using Low Osmolar Contrast (ICD-10-PCS; 2020-10-11)
PROC: B2151ZZ Fluoroscopy of Left Heart using Low Osmolar Contrast (ICD-10-PCS; 2020-10-11)
PROC: B31N1ZZ Fluoroscopy of Other Upper Arteries using Low Osmolar Contrast (ICD-10-PCS; 2020-10-11)
PROC: B2131ZZ Fluoroscopy of Multiple Coronary Artery Bypass Grafts using Low Osmolar Contrast (ICD-10-PCS; 2020-10-11)
PROC: 5A12012 Performance of Cardiac Output, Single, Manual (ICD-10-PCS; 2020-10-12)
PROC: 06HY33Z Insertion of Infusion Device into Lower Vein, Percutaneous Approach (ICD-10-PCS; 2020-10-12)
PROC: 0BH17EZ Insertion of Endotracheal Airway into Trachea, Via Natural or Artificial Opening (ICD-10-PCS; 2020-10-12)
PROC: 30233N1 Transfusion of Nonautologous Red Blood Cells into Peripheral Vein, Percutaneous Approach (ICD-10-PCS; 2020-10-12)
DX: I21.19 ST elevation (STEMI) myocardial infarction involving other coronary artery of inferior wall (principal); I50.33 Acute on chronic diastolic (congestive) heart failure; I24.9 Acute ischemic heart disease, unspecified; M32.9 Systemic lupus erythematosus, unspecified; I11.0 Hypertensive heart disease with heart failure; I42.0 Dilated cardiomyopathy; I25.110 Atherosclerotic heart disease of native coronary artery with unstable angina pectoris; Z88.5 Allergy status to narcotic agent; Z91.013 Allergy to seafood; Z95.5 Presence of coronary angioplasty implant and graft; Z82.49 Family history of ischemic heart disease and other diseases of the circulatory system
CPT/HCPCS: 36415; 71045; 80053; 80061; 82140; 82550; 82962; 83735; 84484; 85025; 85610; 85730; 86850; 86900; 86901; 86920; 92941; 93005; 93459; 96374; G0378; C1725; C1760; C1769; C1874; C1887; C1894; C9606; J0171; J0461; J1170; J1200; J1265; J1644; J2060; J2250; J2270; J2405; J2930; J3010; J3246; J7030; P9016; Q9967